=== PATIENT | female | born 1980 | race Caucasian/White ===

== ENCOUNTER 2021-03-26 22:36 | Emergency (ER) | payer MEDICAID ==
[~2021-03-26] VITALS: Ht 157.5 cm; Wt 77.1 kg
[~2021-03-26 22:36] MED LIST: IBUP-1842 PO
[2021-03-27 01:01] VITALS: BP 127/112
--- NOTE | 2021-03-27 01:05 | NUR ---
PT EVALUATED BY DR. PHELPS IN TRIAGE. RAPID COVID COLLECTED.
--- NOTE | 2021-03-27 01:30 | NUR ---
PT LEFT FACILITY WITHOUT DISCHARGE INSTRUCTIONS.
[2021-03-27] MEDS ORDERED: ACET-10509 PO (01:52)
== END 2021-03-27 01:30 | disposition home or self-care (01) ==
LOC: MED 22:36
DX: U07.1 COVID-19 (principal); H92.03 Otalgia, bilateral; K21.9 Gastro-esophageal reflux disease without esophagitis; Z79.899 Other long term (current) drug therapy; Z98.890 Other specified postprocedural states
CPT/HCPCS: 99283

== ENCOUNTER 2021-04-02 17:46 | Emergency (ER) | payer MEDICAID ==
[~2021-04-02] VITALS: Ht 157.5 cm; Wt 77.1 kg
[~2021-04-02 17:46] MED LIST changes: +ACET-10509 PO
[2021-04-02 18:29] VITALS: BP 163/93
--- NOTE | 2021-04-02 19:14 | NUR ---
COVID PCR SWAB DONE.
[2021-04-02] MEDS ORDERED: PROM118S5 PO (20:18)
[2021-04-02] MEDS ORDERED: AMOX500C25 PO (20:18)
[2021-04-02] MEDS ORDERED: NAPR-54 PO (20:18)
[2021-04-02 20:35] VITALS: BP 140/81
--- NOTE | 2021-04-02 20:35 | NUR ---
Patient discharged with v/s stable. Written and verbal after care instructions given and explained. Patient alert, oriented and verbalized understanding of instructions. Ambulatory with steady gait. All questions addressed prior to discharge. ID band removed. Patient advised to follow up with PMD. Rx of AMOXICILLIN, NAPROSYN, PROMETHAZINE, given. Patient educated on indication of medication including possible reaction and side effects. Opportunity to ask questions provided and answered.
== END 2021-04-02 20:35 | disposition home or self-care (01) ==
LOC: MED 17:46
DX: J18.9 Pneumonia, unspecified organism (principal); K21.9 Gastro-esophageal reflux disease without esophagitis; J45.909 Unspecified asthma, uncomplicated; Z20.822 Contact with and (suspected) exposure to COVID-19
CPT/HCPCS: 71045; 99284; U0003

== ENCOUNTER 2021-04-08 13:56 | Emergency (ER) | payer MEDICAID ==
[~2021-04-08] VITALS: Ht 157.5 cm; Wt 77.1 kg
[~2021-04-08 13:56] MED LIST changes: +AMOX500C25 PO; +NAPR-54 PO; +PROM118S5 PO
[2021-04-08 14:46] VITALS: BP 110/69
[2021-04-08] MEDS ORDERED: BENZ200C4 PO (14:51)
[2021-04-08] MEDS ORDERED: INHA1SPA MC (14:51)
[2021-04-08] MEDS ORDERED: AMOX-1000 PO (14:51)
[2021-04-08] MEDS ORDERED: ALBU0.0912 IH (14:51)
[2021-04-08] MEDS ORDERED: AZIT250T4 PO (14:51)
[2021-04-08] MEDS ORDERED: PRED20TA6 PO (14:51)
[2021-04-08 16:39] VITALS: BP 110/69
--- NOTE | 2021-04-08 16:39 | NUR ---
NO NURSING INTERVENTIONS PROVIDED
--- NOTE | 2021-04-08 16:39 | NUR ---
Patient discharged with v/s stable. Written and verbal after care instructions ABOUT COMMUNITY-ACQUIRED PNEUMONIA given and explained. Patient alert, oriented and verbalized understanding of instructions. Ambulatory with steady gait. All questions addressed prior to discharge. ID band removed. Patient advised to follow up with PMD. Rx of PROVENTIL, AUGMENTIN, ZITHROMAX, BENZONATATE, SPACER WITH MASK AND PREDNISONE given. Patient educated on indication of medication including possible reaction and side effects. Opportunity to ask questions provided and answered.
== END 2021-04-08 16:39 | disposition home or self-care (01) ==
LOC: MED 13:56
DX: J18.9 Pneumonia, unspecified organism (principal); K21.9 Gastro-esophageal reflux disease without esophagitis; Z79.899 Other long term (current) drug therapy
CPT/HCPCS: 99283